=== PATIENT | female | born 1975 | race Caucasian/White ===

== ENCOUNTER 2017-06-01 16:13 | Emergency (ER) | payer OTHER ==
--- NOTE | ~2017-06-01 | CT4 ---
[facility] A Service of [facility] & [facility] RADIOLOGY TEXT RESULTS PATIENT: JONATHAN CHURCH LOCATION: SED : 75 UNIT #: [id number] AGE: [address]: JAMES MOSER SEX: F ORDER DR: [id number] [address] [address] [id number] E MR#: [id number] Acc #: [id number] NAME: JONATHAN CHURCH : 1975 SEX: F STUDY DATE/TIME: 06/01/2017 18:40 UNIT: SED ROOM: STUDY DESCRIPTION: CT Abd and Pelv Wo Cont Attending Physician: James Moser Ordering Physician: Staff Doctor Not On Primary Care Physician: No Primary Care Physician MEDICAL IMAGING REPORT This report is preliminary unless electronic signature is present. EXAM CT scan of the abdomen and pelvis without contrast 06/01/2017 HISTORY Back pain and pelvic pain with vaginal bleeding beginning today. Evaluate for obstructing renal calculus. TECHNIQUE Spiral CT was performed through the abdomen and pelvis without oral or intravenous contrast administration using renal stone protocol. This CT exam was performed with one or more of the following radiation dose reduction techniques: Automatic exposure control, adjustment of mA and/or kV according to patient size, and iterative reconstruction. FINDINGS ABDOMEN: There is no obstructing renal or ureteral calculus. There is a 1.2-cm indeterminate low-density lesion on the midportion of the right kidney. This finding is indeterminate due to the lack of intravenous contrast. It may represent a cyst. Consider nonemergent correlation with renal ultrasound. There are nonobstructing renal stones bilaterally. Visualized liver, spleen, pancreas, gallbladder and biliary tree and adrenal glands are normal. PELVIS FINDINGS: There is colonic diverticulosis without evidence of diverticulitis. The gut is otherwise unremarkable. No adenopathy is seen and there is no free fluid in the abdomen or pelvis. IMPRESSION 1. No obstructing renal or ureteral calculus. Nonobstructing stones are seen bilaterally. There is a 1.2-cm indeterminate low-density lesion on the midportion of the right kidney. This finding is indeterminate due to the lack of intravenous contrast. Recommend nonemergent correlation with renal ultrasound for characterization of STS. [facility] A Service of [facility] & [facility] RADIOLOGY TEXT RESULTS PATIENT: JONATHAN CHURCH LOCATION: [facility] : 75 UNIT #: [id number] AGE: [address]: JAMES MOSER SEX: F ORDER DR: this finding. 2. Diverticulosis. No evidence of diverticulitis. Dictated by... Kyle Heredia M.D. THIS IS AN ELECTRONICALLY VERIFIED REPORT Kyle Heredia M.D. at 06/02/2017 2:11 PM KRT/campbell TD: 06/02/2017 08:43 JOB #: [id number] MEDICAL IMAGING REPORT Page 1 of 1
[~2017-06-01 16:13] MED LIST: AUGMENTIN PO; BACTRIM DS TABL1 TA1 PO; DICLOFENAC PO; KEFLEX PO; LORTAB 7.5-5001 TAB PO; NAPROSYN500 MG PO; NO MEDICATIONS; ORTHO MICRONO0.35 MG PO; PERCOCET 5-3251 TAB PO; ROBAXIN 750750 M1 PO; [UNRECOGNIZED DRUG - OTHER] PO
[2017-06-01 17:05] LABS: URINE SOURCE CLEAN CATCH
[2017-06-01 17:07] LABS: URINE APPEARANCE CLEAR; URINE BILIRUBIN NEG (NEG); URINE BLOOD NEG (NEG); URINE COLOR YELLOW; URINE GLUCOSE NEG (NORM); URINE KETONE NEG (NEG); URINE LEUKOCYTE ESTERASE NEG (NEG); URINE NITRATE NEG (NEG); URINE PH 7.5 (5-8); URINE PROTEIN NEG (NEG); URINE UROBILINOGEN 0.2 MG/DL (NORM)
[2017-06-01 17:08] LABS: MICRO INDICATED? NO
[2017-06-01 17:32] LABS: BASOPHIL# 0.1 X10e3 (0-0.3); BASOPHIL% 1.3 % (0-2.5); EOSINOPHIL# 0.3 X10e3 (0-0.7); EOSINOPHIL% 3.2 % (0.0-7.0); HEMATOCRIT 44.8 % (35.0-45.0); HEMOGLOBIN 15.3 gm/dL (12.0-16.0); LYMPHOCYTE# 1.7 X10e3 (1.0-3.5); LYMPHOCYTE% 20.8 % (17.0-45.0); MEAN CELL VOLUME 84.7 FL (83-96); MEAN CORPUSCULAR HGB CONC 34.2 g/dL (30-36); MEAN PLATELET VOLUME 8.3 FL (6.5-11.5); MONOCYTE# 0.7 X10e3 (0-1.0); MONOCYTE% 8.8 % (3.0-12.0); NEUTROPHIL# 5.3 X10e3 (1.5-7.1); NEUTROPHIL% 65.9 % (40-75); PLATELET COUNT 373 X10e3 (140-420); RED BLOOD COUNT 5.29 X10e (3.90-5.30); WHITE BLOOD COUNT 8.1 X10e3 (4.0-10.5)
[2017-06-01 17:34] LABS: DIFF IND NO
[2017-06-01 17:53] LABS: ALBUMIN SERUM 3.8 g/dL (3.5-5.0); BILIRUBIN,TOTAL 0.3 mg/dL (0.2-2.0); BUN/CREATININE RATIO 7.5; CALCIUM SERUM 8.6 mg/dL (8.4-10.2); CREATININE SERUM 0.8 mg/dL (0.6-1.4); GLOM FILT RATE Estimated 91.7 mL/min (>60); POTASSIUM 3.5 mmol/L (3.5-5.1)
[2017-06-04 20:40] LABS: CHLAMYDIA TRACH Not Detected (Not Detected); N GONOR Not Detected (Not Detected)
== END 2017-06-01 19:33 | disposition home or self-care (01) ==
LOC: SED 16:13
PROVIDERS: Nurse Practitioner
DX: R10.32 Left lower quadrant pain (principal); R03.0 Elevated blood-pressure reading, without diagnosis of hypertension; E11.9 Type 2 diabetes mellitus without complications; F17.210 Nicotine dependence, cigarettes, uncomplicated
CPT/HCPCS: 36415; 74176; 80053; 81003; 84703; 85025; 87210; 87491; 87591; 87808; 87905; 96374; 99284; J1885

== ENCOUNTER 2017-06-06 07:18 | Emergency (ER) | payer OTHER ==
--- NOTE | ~2017-06-06 | US98 ---
[facility] A Service of [facility] RADIOLOGY TEXT RESULTS PATIENT: JONATHAN CHURCH LOCATION: [facility] : 75 UNIT #: [id number] AGE: [address]: Raine Pham APRN SEX: F ORDER DR: [id number] [facility] [address] [facility] [place], [place] [address] [id number] E MR#: [id number] Acc #: [id number] NAME: JONATHAN CHURCH : 1975 SEX: F STUDY DATE/TIME: 06/06/2017 8:57 UNIT: EMILY ROOM: STUDY DESCRIPTION: US Pelvic Non-OB Complete Attending Physician: Raine Pham A.P.R.N. Ordering Physician: Ed Godwin Ledesma M.D. Primary Care Physician: No Primary Care Physician MEDICAL IMAGING REPORT This report is preliminary unless electronic signature is present EXAM Pelvis sonogram. CLINICAL HISTORY 41-year-old female 3, para 3 with pelvic pain, abnormal vaginal bleeding x8 days. Symptoms getting worse. TECHNIQUE Real time examination was performed utilizing both transabdominal and endovaginal scanning. FINDINGS The examination demonstrates a normal-appearing nongravid uterus measuring 8.2 x 3.7 x 4.7 cm. The endometrium is thin with a double-thickness measurement of 3.3 mm. No uterine or adnexal masses. No free fluid. Both ovaries are visualized and unremarkable except for bilateral follicular cysts with a 2 cm cyst right ovary, 2.1 cm cyst left ovary. Normal Doppler flow. IMPRESSION Normal pelvic sonogram with simple physiologic cysts noted bilaterally. Dictated by... Garrick Dominguez M.D. THIS IS AN ELECTRONICALLY VERIFIED REPORT Garrick Dominguez M.D. at 06/10/2017 9:28 AM GIA/madeline TD: 06/06/2017 12:52 [facility] A Service of [facility] RADIOLOGY TEXT RESULTS PATIENT: JONATHAN CHURCH LOCATION: [facility] : 75 UNIT #: [id number] AGE: [address]: Raine Pham APRN SEX: F ORDER DR: JOB #: [id number] MEDICAL IMAGING REPORT Page 1 of 1 COPY
[2017-06-06 08:19] LABS: URINE SOURCE CLEAN CATCH
[2017-06-06 08:24] LABS: URINE APPEARANCE CLOUDY; URINE BILIRUBIN NEG (NEG); URINE BLOOD NEG (NEG); URINE COLOR YELLOW; URINE GLUCOSE NEG (NEG); URINE KETONE NEG (NEG); URINE LEUKOCYTE ESTERASE 1+ (NEG); URINE NITRATE NEG (NEG); URINE PROTEIN NEG (NEG); URINE SPECIFIC GRAVITY 1.023 (1.003-1.035)
[2017-06-06 08:25] LABS: BASOPHIL# 0.1 X10e3 (0-0.3); BASOPHIL% 0.8 % (0-2.5); DIFF IND NO; EOSINOPHIL# 0.2 X10e3 (0-0.7); EOSINOPHIL% 3.2 % (0.0-7.0); LYMPHOCYTE# 1.8 X10e3 (1.0-3.5); LYMPHOCYTE% 23.1 % (17.0-45.0); MEAN CELL VOLUME 85.8 FL (83-96); MEAN CORPUSCULAR HEMOGLOBIN 28.6 PG (28-34); MEAN CORPUSCULAR HGB CONC 33.4 g/dL (30-36); MEAN PLATELET VOLUME 8.4 FL (6.5-11.5); MONOCYTE# 0.6 X10e3 (0-1.0); NEUTROPHIL% 64.9 % (40-75); PLATELET COUNT 331 X10e3 (140-420); RED BLOOD COUNT 4.89 X10e (3.90-5.30); WHITE BLOOD COUNT 7.7 X10e3 (4.0-10.5)
[2017-06-06 08:27] LABS: CULTURE INDICATED? YES; URINE BACTERIA AUWI 2+ (NEGATIVE); URINE SQUAMOUS EPITHELIAL CELL FEW /[HPF]
[2017-06-06 08:38] LABS: URBCS1 AUWI 0-2 /[HPF] (0-2)
[2017-06-06 08:52] LABS: BILIRUBIN, DIRECT 0.1 mg/dL (0.0-0.2); BILIRUBIN,INDIRECT 0.4 mg/dL (0.0-0.9); BILIRUBIN,TOTAL 0.5 mg/dL (0.2-2.0); BUN/CREATININE RATIO 23.75; CALCIUM SERUM 8.6 mg/dL (8.4-10.2); CREATININE SERUM 0.8 mg/dL (0.6-1.4); GLOM FILT RATE Estimated 91.7 mL/min (>60); POTASSIUM 3.5 mmol/L (3.5-5.1); PROTEIN TOTAL SERUM 7.1 g/dL (6.0-8.3)
[2017-06-08 08:43] LABS: CHLAMYDIA TRACH Not Detected (Not Detected); N GONOR Not Detected (Not Detected)
== END 2017-06-06 11:02 | disposition home or self-care (01) ==
LOC: CED 07:18
PROVIDERS: Nurse Practitioner
DX: N76.0 Acute vaginitis (principal); F17.210 Nicotine dependence, cigarettes, uncomplicated
CPT/HCPCS: 36415; 76830; 76856; 80048; 80076; 81003; 82150; 83690; 84703; 85025; 87086; 87491; 87591; 87808; 87905; 96374; 99284; J1885